=== PATIENT | female | born 1980 | race Caucasian/White ===

== ENCOUNTER 2018-07-29 20:26 | Emergency (ER) | payer BC ==
[2018-07-29 20:38] VITALS: PULSE 66; TEMP 98.2
--- NOTE | 2018-07-29 21:10 | ED PDOC ---
HPI: Abdomen Time Seen by Provider: 07/29/18 20:54 Chief Complaint (Nursing): Abdominal Pain Chief Complaint (Provider): abdominal pain History Per: Patient History/Exam Limitations: no limitations Onset/Duration Of Symptoms: Hrs, Waxing/Waning Current Symptoms Are (Timing): Still Present Location Of Pain/Discomfort: LLQ Quality Of Discomfort: "Pain" Exacerbating Factors: Movement Last Bowel Movement: Days Ago (4) Additional Complaint(s): 38 y/o female presents for evaluation of intermittent left lower abdominal pain x 1 day. Associated decreased appetite. Patient states pain worsened with movement, and has become more consistent tonight, prompting ED visit. Denies fever, vomiting, chest pain, shortness of breath, palpitations, urinary symptoms. Patient states last bowel movement was 4 days ago, which is unusual for her. Past Medical History Reviewed: Historical Data, Nursing Documentation, Vital Signs Vital Signs: Last Vital Signs Temp 98.2 F 07/29/18 20:35 Pulse 66 07/29/18 20:35 Resp 16 07/29/18 20:35 BP 119/63 07/29/18 20:35 Pulse Ox 98 07/29/18 20:35 - Medical History PMH: Hypothyroidism - Surgical History Surgical History: No Surg Hx - Family History Family History: States: No Known Family Hx - Living Arrangements Living Arrangements: With Family - Home Medications Home Medications: Ambulatory Orders Medication Instructions Recorded Naproxen [Naprosyn] 500 mg PO Q12 PRN #14 tablet 07/29/18 Polyethylene Glycol 3350 [Miralax] 17 gm PO DAILY PRN #7 powd.pack 07/29/18 - Allergies Allergies/Adverse Reactions: Allergies Allergy/AdvReac Type Severity Reaction Status Date / Time No Known Allergies Allergy Verified 07/29/18 20:38 Review of Systems ROS Statement: Except As Marked, All Systems Reviewed And Found Negative Gastrointestinal: Positive for: Abdominal Pain Physical Exam - Reviewed Nursing Documentation Reviewed: Yes Vital Signs Reviewed: Yes - Physical Exam Appears: Positive for: Well, Non-toxic, No Acute Distress Head Exam: Positive for: ATRAUMATIC, NORMAL INSPECTION, NORMOCEPHALIC Skin: Positive for: Normal Color Eye Exam: Positive for: Normal appearance ENT: Positive for: Normal ENT Inspection Cardiovascular/Chest: Positive for: Regular Rate, Rhythm Respiratory: Positive for: Normal Breath Sounds Gastrointestinal/Abdominal: Positive for: Bowel Sounds, Soft, Tenderness (LLQ) Back: Positive for: Normal Inspection Extremity: Positive for: Normal ROM Neurological/Psych: Positive for: Awake, Alert, Oriented - Laboratory Results Result Diagrams: 07/29/18 21:28 07/29/18 21:28 - ECG O2 Sat by Pulse Oximetry: 98 - Progress ED Course And Treament: -upreg -udip -cbc -cmp -lipase -transvaginal u/s -IV toradol EXAM: US Pelvis, Complete Transvaginal and Transabdominal COMPARISON: None provided. CLINICAL HISTORY: Llq pain TECHNIQUE: Transvaginal and transabdominal pelvic ultrasound (complete) with image documentation. FINDINGS: ENDOMETRIUM: Normal thickness measuring 5.1 mm in AP dimension. UTERUS/CERVIX: The uterus is anteverted in position and normal in size measuring 6.8 x 2.7 x 3.9 cm in longitudinal, AP and transverse dimensions respectively. within normal limits. No uterine fibroid or other mass evident. RIGHT OVARY: Normal Doppler flow. No abnormal mass. A 1.1 x 0.9 x 1.0 cm follicle demonstrated in the right ovary. LEFT OVARY: Normal Doppler flow. A 1.8 x 1.4 x 1.8 cm simple cyst is demonstrated within the left ovary. FREE FLUID: Trace free fluid noted within the posterior cul-de-sac. IMPRESSION: 1. A 1.8 x 1.4 cm simple cyst noted in the left ovary. 2. A 1.1 x 0.9 cm follicular cyst within the right ovary. 3. Trace free fluid in the posterior cul-de-sac. On re-eval, patient resting comfortably; states pain improved Patient educated on findings, discharged with rx Naproxen, Miralax Advised follow up PMD/Client Support Professional within 2-3 days Return precautions given Disposition - Clinical Impression Clinical Impression: Abdominal pain, Constipation, Ovarian cyst - Patient ED Disposition Is Patient to be Admitted: No Counseled Patient/Family Regarding: Studies Performed, Diagnosis, Need For Followup, Rx Given - Disposition Disposition: Routine/Home Disposition Time: 22:54 Condition: IMPROVED Prescriptions: Naproxen [Naprosyn] 500 mg PO Q12 PRN #14 tablet PRN Reason: Pain, Moderate (4-7) Polyethylene Glycol 3350 [Miralax] 17 gm PO DAILY PRN #7 powd.pack PRN Reason: Constipation Instructions: Ovarian Cysts, Constipation in Adults, Acute Abdomen (Belly Pain), Adult (DC) Forms: [employer] ([place]ian)
[2018-07-29] MEDS ORDERED: Sodium Chloride 0.9% 1,000 ML IV STA (21:31)
[2018-07-29 21:44] LABS: ALB/GLOB RATIO 1.4 (1.0-2.1); ALBUMIN 4.6 g/dL (3.5-5.0); BLOOD UREA NITROGEN 9 mg/dl (7-17); CALCIUM 9.8 mg/dL (8.4-10.2); GFR NON-AFRICAN AMERICAN > 60; LIPASE 110 U/L (23-300)
[2018-07-29 21:54] LABS: BASO # 0.1 K/uL (0.0-0.2); EOS # 0.1 K/uL (0.0-0.7); EOS % 1.9 % (0.0-4.0); HEMOGLOBIN 13.2 g/dL (12.0-16.0); LYMPH # 2.3 K/uL (1.0-4.3); LYMPH % 38.1 % (20.0-40.0); MEAN CELL VOLUME 90.6 fl (81.0-99.0); MEAN CORPUSCULAR HEMOGLOBIN 29.6 pg (27.0-31.0); MEAN CORPUSCULAR HGB CONC 32.7 g/dL (33.0-37.0); MEAN PLATELET VOLUME 8.4 fl (7.2-11.7); MONO # 0.5 K/uL (0.0-0.8); MONO % 7.5 % (0.0-10.0); NEUT # 3.1 K/uL (1.8-7.0); NEUT % 51.5 % (50.0-75.0); NRBC % 0.2 % (0.0-0.0); RBC 4.47 Mil/uL (3.80-5.20); RED CELL DISTRIBUTION WIDTH 13.6 % (11.5-14.5); WHITE BLOOD COUNT 6.1 K/uL (4.8-10.8)
[2018-07-29 21:56] LABS: SQUAMOUS EPITHIAL 1 /hpf (0-5); URINE BACTERIA RARE (<OCC); URINE BILIRUBIN NEGATIVE (NEGATIVE); URINE BLOOD NEGATIVE (NEGATIVE); URINE CLARITY SLIGHTY-CLOUDY (Clear); URINE COLOR YELLOW (YELLOW); URINE GLUCOSE (UA) NEG (NEGATIVE); URINE LEUKOCYTE ESTERASE NEG Leu/uL (Negative); URINE PROTEIN NEGATIVE (NEGATIVE); URINE UROBILINOGEN 0.2-1.0 mg/dL (0.2-1.0)
[2018-07-29 22:10] LABS: ALT/SGPT 19 U/L (9-52); AST/SGOT 39 U/L (14-36)
[2018-07-29 23:09] VITALS: BP 107/65; RESP 18; O2SAT 99
--- NOTE | 2018-07-30 11:15 | US ---
Date of service: 07/29/2018 HISTORY: Left pelvic pain COMPARISON: None available. TECHNIQUE: Transvaginal pelvic ultrasound was performed. FINDINGS: UTERUS: Measures 6.8 x 2.7 x 3.9 cm. Anteverted, normal in size and appearance. No fibroid or other mass lesion seen. ENDOMETRIUM: Measures 5.0 mm in diameter. Normal in appearance. CERVIX: No cervical abnormality identified. RIGHT OVARY: Measures 2.2 x 1.7 x 1.2 cm. No solid mass. Normal flow. LEFT OVARY: Measures 3.3 x 1.7 x 2.9 cm. No solid mass. Normal flow. There is a 1.8 x 1.4 x 1.8 cm simple cyst. FREE FLUID: Trace free fluid in the cul de sac is likely physiologic. OTHER FINDINGS: None. IMPRESSION: 1.8 x 1.4 x 1.8 cm simple cyst in the left ovary. No evidence for torsion. A preliminary report was provided by [facility].
== END 2018-07-29 22:53 | disposition home or self-care (01) ==
LOC: H.ER 20:26
DX: N83.291 Other ovarian cyst, right side (principal); N83.292 Other ovarian cyst, left side; K59.00 Constipation, unspecified; R10.32 Left lower quadrant pain; E03.9 Hypothyroidism, unspecified
CPT/HCPCS: 76830; 80053; 81003; 81025; 83690; 85025; 96360; 99284; J1885; J7030